=== PATIENT | female | born 1990 | race Hispanic/Latino ===

== ENCOUNTER 2016-11-17 16:06 | Emergency (ER) | payer SELFPAY ==
[2016-11-17] MEDS ORDERED: Fluorescein Opthalmic Strip ONE (16:33)
[2016-11-17] MEDS ORDERED: Proparacaine 0.5% Opth 15 ML BOT ONE (16:33)
== END 2016-11-17 17:01 | disposition home or self-care (01) ==
LOC: NAV ERS 16:06
DX: T15.02XA Foreign body in cornea, left eye, initial encounter (principal)
CPT/HCPCS: 65220